=== PATIENT | female | born 1965 | race Caucasian/White ===

== ENCOUNTER 2017-04-16 13:10 | Outpatient (CLI) | payer BC ==
[~2017-04-16] VITALS: Ht 157.5 cm; Wt 68.0 kg
[2017-04-16] MEDS ORDERED: ATOR20TA66 PO ×2 (13:13)
[2017-04-16] MEDS ORDERED: ESTR1TAB37 PO ×2 (13:13)
[2017-04-16] MEDS ORDERED: NALT1TAB PO ×2 (13:13)
== END 2017-04-16 13:15 ==
LOC: PREOP 13:10
PROVIDERS: ATTEND Surgery
DX: Z01.818 Encounter for other preprocedural examination (principal); Z12.11 Encounter for screening for malignant neoplasm of colon

== ENCOUNTER 2017-04-19 10:42 | Day surgery (SDC) | payer BC ==
[~2017-04-19] VITALS: Ht 157.5 cm; Wt 68.0 kg
[~2017-04-19 10:42] MED LIST: ATOR20TA66 PO; ESTR1TAB37 PO; NALT1TAB PO
--- OUTSIDE RECORDS SUMMARY | 2017-04-19 10:45 | XMS REPORT | Continuity of Care Document ---
Author Author [facility] Organization [facility] Address Unknown Phone Unavailable Allergies Active Description Code Type Severity Reaction Onset Reported/Identified Relationship to Patient Clinical Status Yes No Known Drug Allergies [id number] Drug Allergy Unknown N/A 04/16/2017 Medications There is no data. Problems Date Dx Coded Attending Type Code Diagnosis Diagnosed By 02/15/2014 KENDELL RAMOS MD Ot V76.12 05/01/2014 KENDELL RAMOS MD Ot V76.12 02/07/2015 KENDELL RAMOS MD Ot V76.12 03/20/2015 KENDELL RAMOS MD Ot Z12.31 07/04/2016 KENDELL RAMOS MD Ot V76.12 OTH SCREEN MAMMO-MALIGN NEOPLASM OF DAVID 07/04/2016 KENDELL RAMOS MD Ot Z12.31 ENCNTR SCREEN MAMMOGRAM FOR MALIGNANT NE 07/17/2016 KENDELL RAMOS MD Ot V76.12 OTH SCREEN MAMMO-MALIGN NEOPLASM OF ADVID 07/17/2016 KENDELL RAMOS MD Ot Z12.31 ENCNTR SCREEN MAMMOGRAM FOR MALIGNANT NE Procedures There is no data. Results There is no data. Encounters ACCT No. Visit Date/Time Discharge Status Pt. Type Provider Facility Loc./Unit Complaint [id number] 04/16/2017 13:10:00 04/16/2017 13:15:00 DIS Outpatient MARCELL SANCHEZ MD [facility] PREOP COLONOSCOPY [id number] 02/07/2015 11:16:00 02/07/2015 23:59:59 CLS Outpatient KENDELL RAMOS MD [facility] RAD SCREENING [id number] 01/30/2014 10:24:00 01/30/2014 23:59:59 CLS Outpatient KENDELL RAMOS MD [facility] RAD SCREENING [id number] 04/26/2017 07:30:00 PEN Preadmit RICHARD LAIRD, KENDELL Friedman [facility] RAD SCREENING MAMMO
[2017-04-19] MEDS ORDERED: NS IV 500 ML 500 ML IV PRN (10:50)
[2017-04-19 11:07] VITALS: BP 159/93
[2017-04-19] MEDS ORDERED: MIDAZOLAM 2 MG/2 ML (VERSED) VIAL ONE ×4 (13:59)
[2017-04-19] MEDS ORDERED: fentaNYL INJECTION 100 MCG/2 ML AMP ONE ×2 (14:00)
--- NOTE | 2017-04-19 14:00 | History & Physicial ---
History of Present Illness History of Present Illness Reason for visit/HPI to undergo screening colonoscopy Date of Admission 04/19/17 Date Seen by Provider: Apr 19, 2017 Time Seen by Provider: 13:57 I consulted on this patient on 04/19/17 13:57 Attending Physician Marcell Bailon MD Admitting Physician Brian Macdonald MD Consult Allergies and Home Medications Allergies Coded Allergies: No Known Drug Allergies (Unverified , 04/16/17) Home Medications Atorvastatin Calcium 20 Mg Tablet, 20 MG PO HS, (Reported) Estrogen,Anayeli/Me-Testosterone 1 Each Tablet, 1 EACH PO DAILY, (Reported) Naltrexone HCl/Bupropion HCl 1 Each Tablet.er, 2 TAB PO BID, (Reported) Past Wquxqca-Sgavlx-Egnimv Hx Patient Social History Marrital Status: Employed/Student: employed Alcohol Use: Rarely Uses Recreational Drug Use: No Smoking Status: Never a Smoker Recent Foreign Travel: No Contact w/other who traveled: No Recent Hopitalizations: No Recent Infectious Disease Expo: No Seasonal Allergies Seasonal Allergies: Yes Surgeries Yes Hysterectomy, Tubal Ligation Respiratory No Cardiovascular Yes High Cholesterol Neurological No Reproductive System : Yes COMMUNICATIONS INTERN History: Hysterectomy Genitourinary No Gastrointestinal No Musculoskeletal No Endocrine History of Endocrine Disorders: No HEENT History of HEENT Disorders: No Cancer No Psychosocial History of Psychiatric Problem: No Integumentary History of Skin or Integumenta: No Family Medical History Significant Family History: No Pertinent Family Hx Constitutional: no symptoms reported EENTM: no symptoms reported Respiratory: no symptoms reported Cardiovascular: no symptoms reported Gastrointestinal: no symptoms reported Genitourinary: no symptoms reported Musculoskeletal: no symptoms reported Skin: no symptoms reported Psychiatric/Neurological: No Symptoms Reported Physical Exam Vital Signs Vital Sign - Last 12Hours 04/19/17 11:07 Temp 97.5 Pulse 83 Resp 18 B/P (MAP) 159/93 (115) Pulse Ox 97 O2 Delivery Room Air Capillary Refill : General Appearance: No Apparent Distress HEENT: Normal ENT Inspection Neck: Normal Inspection Respiratory: Lungs Clear Cardiovascular: Regular Rate, Rhythm Gastrointestinal: Non Tender, Soft Rectal: Deferred Back: Normal Inspection Extremity: Normal Inspection Neurologic/Psychiatric: Alert, Oriented x3 Skin: Normal Color, Warm/Dry Assessment/Plan Assessment and Plan lady here to undergo screening colonoscopy. Discussed in detail Problems: MARCELL BAILON MD Apr 19, 2017 2:00 pm
--- NOTE | 2017-04-19 14:00 | Conscious Sedation/ASA ---
Conscious Sedation Pre-Proced Time Reviewed: 14:00 ASA Class: 2 Airway Mallampati Classification: (nulato appropriate class) I. II. III, IV Lungs Heart ASA score ASA 1: a normal healthy patient ASA 2: a patient with a mild systemic disease (mid diabetes, controlled hypertension, obesity ASA 3: a patient with a severe systemic disease that limits activity (angina , COPD, prior Myocardial infarction) ASA 4: a patient with an incapacitating disease that is a constant threat to life (CHF, renal failure) ASA 5: a moribund patient not expected to survive 24 hrs. (ruptured aneurysm) ASA 6: a declared brain patient whose organs are being harvested. For emergent operations, add the letter E after the classification Grade 1 Sedation Plan: Discussed options with patient/fam Note The patient is an appropriate candidate to undergo the planned procedure, sedation, and anesthesia. The patient immediately re-assessed prior to indication. MARCELL SANCHEZ MD Apr 19, 2017 2:00 pm
[2017-04-19] MEDS ORDERED: NS IV 500 ML 500 ML ONE (14:04)
[2017-04-19] MEDS: fentaNYL INJECTION 100 MCG/2 ML AMP IVP PRN ×2 (14:15→14:30)
[2017-04-19] MEDS: MIDAZOLAM 2 MG/2 ML (VERSED) VIAL IVP PRN ×3 (14:17→14:25)
--- NOTE | 2017-04-19 14:43 | Endo Procedure Record ---
Endo Procedure Report Date of Procedure Last Colonoscopy: No Apr 19, 2017 Surgeon (s) MARCELL SANCHEZ MD Post Procedure/Op Diagnosis normal Procedure Performed colonoscopy to cecum Description of Procedure Anesthesia Type: Conscious Sedation Specimen(s) collected/removed none Description of the Procedure Indication for the procedure: This lady came in for screening colonoscopy. She denied any family history of colon cancer. Informed consent was obtained after reviewing the procedure in detail. Description of procedure: She was placed in left lateral decubitus position and her vital signs were monitored. Conscious sedation was achieved using Versed and fentanyl. Digital rectal examination was unremarkable. The colonoscope was then introduced in the rectum and advanced to the cecum The quality of bowel preparation was rather suboptimal The scope was then withdrawn slowly and the mucosa examined in a systematic fashion. There was no polyp She tolerated the procedure well and was taken back to the nursing area in a stable condition Impression: Normal screening colonoscopy. No family history. Recommend repeating 10 years. Copies To: KENDELL RAMOS MD, XAVIER M MD Apr 19, 2017 2:43 pm
--- NOTE | 2017-04-19 14:44 | Discharge Inst-Simple/Standard ---
Discharge Inst-Standard Discharge Medications New, Converted or Re-Newed RX: Other Patient Instructions/Follow Up Plan of Care/Instructions/FU: Repeat colonoscopy in 10 years Activity as Tolerated: Yes Discharge Diet: No Restrictions MARCELL SANCHEZ MD Apr 19, 2017 2:44 pm
[2017-04-19 15:00] VITALS: BP 118/78
[2017-04-19 15:25] VITALS: BP 126/84
[2017-04-19 15:29] VITALS: BP 126/84
== END 2017-04-19 15:30 | disposition home or self-care (01) ==
LOC: ENDO 10:42
PROVIDERS: ATTEND Surgery
DX: Z12.11 Encounter for screening for malignant neoplasm of colon (principal); E78.00 Pure hypercholesterolemia, unspecified; Z79.899 Other long term (current) drug therapy

== ENCOUNTER → 2017-04-26 | Outpatient (CLI) | payer BC ==
--- NOTE | 2017-04-26 11:07 | Diagnostic Imaging Report ---
INDICATION: Routine screening. COMPARISON: 02/07/2015 and 01/30/2014. TECHNIQUE: Screening digital mammography was performed bilaterally with a Computer Aided Detection (CAD) system. FINDINGS: Bilateral breast implants are noted. The implant contours appear to be smooth. Moderate parenchymal density is seen bilaterally. The parenchymal pattern is stable. No discrete mass or malignant appearing microcalcifications are seen. The axillae are unremarkable. IMPRESSION: No mammographic features suspicious for malignancy are identified. ACR BI-RADS Category 2: Benign findings. Result letter will be mailed to the patient. Note: At least 10% of breast cancer is not imaged by mammography. Dictated by: Dictated on workstation # [id number]
== END ==
LOC: RAD 07:21
DX: Z12.31 Encounter for screening mammogram for malignant neoplasm of breast (principal)
CPT/HCPCS: 77067